=== PATIENT | male | born 1975 | race Caucasian/White ===

== ENCOUNTER 2020-04-05 18:53 | Emergency (ER) | payer MEDICAID ==
--- NOTE | 2020-04-05 19:21 | EDM.PDOC ---
ED HPI GENERAL MEDICAL PROBLEM - General Chief Complaint: Laceration Stated Complaint: GASH ABOVE EYE/FELL ON CONCRETE Time Seen by Provider: 04/05/20 19:00 Source of Information: Reports: Patient, Family History Limitations: Reports: No Limitations - History of Present Illness INITIAL COMMENTS - FREE TEXT/NARRATIVE: Patient states was walking out of the bar today after having 7 or 8 beers states his left knee gave out only when he fell hitting his right forehead on the concrete patient denies any loss of consciousness. He states he was able to get up with assistance of his he denies any signs or symptoms of any head injury at this time His tetanus is up-to-date given within the last 5 years He has no other complaints Onset: Today, Sudden Duration: Minutes: Quality: Reports: Other (No pain) Associated Symptoms: Reports: No Other Symptoms. Denies: Confusion, Chest Pain , Cough, Diaphoresis, Fever/Chills, Loss of Appetite, Nausea/Vomiting, Shortness of Breath, Weakness Treatments MECHANICAL INSULATOR: Denies: Acetaminophen, Aspirin, NSAIDS - Related Data Allergies Allergy/AdvReac Type Severity Reaction Status Date / Time Penicillins Allergy Cannot Verified 04/05/20 19:12 Remember Home Meds: Home Meds . [Unable to Verify Home Med List] 04/05/20 [History] Past Medical History Psychiatric History: Reports: Addiction, Anxiety, Depression ED ROS GENERAL - Review of Systems Review Of Systems: See Below Constitutional: Reports: No Symptoms HEENT: Reports: No Symptoms Respiratory: Reports: No Symptoms Cardiovascular: Reports: No Symptoms Endocrine: Reports: No Symptoms GI/Abdominal: Reports: No Symptoms : Reports: No Symptoms Musculoskeletal: Reports: Joint Pain, Other (Chronic left knee pain patient states it gives out 2-3 times a week.) Skin: Reports: No Symptoms, Other (There is a noted 1.5 cm x 3 mm laceration at the lateral aspect of the eyebrow there is no noted edema or abrasions no crepitus there is no tenderness to palpation around the orbit patient has no pain with Valsalva maneuver that would indicate any type of blowout fracture or orbital floor fracture pupils equal round reactive to light acombination normal EOMI no signs of entrapment) Neurological: Reports: No Symptoms. Denies: Confusion, Dizziness, Headache, Numbness, Paresthesia, Pre-Existing Deficit, Seizure, Syncope, Tingling, Tremors , Trouble Speaking, Difficulty Walking, Weakness, Gait Disturbance Psychiatric: Reports: No Symptoms Hematologic/Lymphatic: Reports: No Symptoms Immunologic: Reports: No Symptoms ED EXAM, SKIN/RASH Exam: See Below Exam Limited By: No Limitations General Appearance: Alert, WD/WN, No Apparent Distress, Other (Patient is alert and oriented x4 normal conversation logical thought process follows all commands cranial nerves II through XII are intact he has normal gait normal Romberg) Eye Exam: Bilateral Eye: EOMI, Normal Inspection Ears: Normal External Exam, Normal Canal, Hearing Grossly Normal, Normal TMs Nose: Normal Inspection, Normal Mucosa, No Blood Throat/Mouth: Normal Inspection, Normal Lips, Normal Teeth, Normal Gums, Normal Oropharynx, Normal Voice, No Airway Compromise Head: Atraumatic, Normocephalic. No: Facial Swelling, Facial Tenderness, Sinus Tenderness Neck: Normal Inspection, Supple, Non-Tender, Full Range of Motion Respiratory/Chest: No Respiratory Distress, Lungs Clear, Normal Breath Sounds, No Accessory Muscle Use Cardiovascular: Regular Rate, Rhythm GI/Abdominal: Normal Bowel Sounds, Soft, Non-Tender, No Organomegaly, No Distention Extremities: Normal Inspection, Normal Range of Motion, Non-Tender Neurological: Alert, Oriented, CN II-XII Intact, Normal Cognition, Normal Gait, Normal Reflexes, No Motor/Sensory Deficits, Other (There is a noted 1.5 cm x 3 mm laceration at the lateral aspect of the eyebrow there is no noted edema or abrasions no crepitus there is no tenderness to palpation around the orbit patient has no pain with Valsalva maneuver that would indicate any type of blowout fracture or orbital floor fracture pupils equal round reactive to light acombination normal EOMI no signs of entrapment) Psychiatric: Normal Affect, Normal Mood Skin: Warm, Dry, Intact, Normal Color, No Rash Location, Skin: Other (1.5 cm linear/jagged laceration to the lateral aspect of the eyebrow no bleeding is noted) Course - Vital Signs Text/Narrative:: PT refused to head CT and explained risk versus benefits still refuses States he is okay and knows what signs and symptoms to watch for and been in worse shape than this The laceration was cleaned with a Hibiclens sponge and Dermabond with great approximation Patient and was given head injury instructions and signs and symptoms needs to return to the emergency room and need for follow-up with wound Last Recorded V/S: Last Vital Signs Temp 36.4 C 04/05/20 18:53 Pulse 86 04/05/20 18:53 Resp 16 04/05/20 18:53 BP 123/80 04/05/20 18:53 Pulse Ox 96 04/05/20 18:53 Departure - Departure Time of Disposition: 19:45 Disposition: Home, Self-Care 01 Condition: Good Clinical Impression: Laceration of head, Contusion of head - Discharge Information *PRESCRIPTION DRUG MONITORING PROGRAM REVIEWED*: No *COPY OF PRESCRIPTION DRUG MONITORING REPORT IN PATIENT MARK: No Instructions: Contusion, [id number], Laceration Care, Adult, [id number] Referrals: Bernardino Vargas PA-C [Primary Care Provider] - Forms: ED Department Discharge Additional Instructions: Return to the emergency room if anything changes or gets worse such Any change in behavior headache vision changes nausea or vomiting bleeding from the ears or nose or anything that is not normal Keep the area clean and dry with warm soapy water Follow-up with the primary care provider in the next 24 to 48 hours Sepsis Event Note - Evaluation Sepsis Screening Result: No Definite Risk - Focused Exam Vital Signs: Vital Signs Temp Pulse Resp BP Pulse Ox 04/05/20 18:53 36.4 C 86 16 123/80 96 Date Exam was Performed: 04/05/20 Time Exam was Performed: 20:59 - Problem List & Annotations (1) Contusion of head SNOMED Code(s): 337548318 Code(s): S00.93XA - CONTUSION OF UNSPECIFIED PART OF HEAD, INITIAL ENCOUNTER Status: Acute (2) Laceration of head SNOMED Code(s): 587589765 Code(s): S01.91XA - LACERATION W/O FOREIGN BODY OF UNSP PART OF HEAD, INIT Status: Acute
== END 2020-04-05 19:39 | disposition home or self-care (01) ==
LOC: VM.ED 18:53
DX: S01.111A Laceration without foreign body of right eyelid and periocular area, initial encounter (principal); Z88.0 Allergy status to penicillin; W01.10XA Fall on same level from slipping, tripping and stumbling with subsequent striking against unspecified object, initial encounter
CPT/HCPCS: 12011; 99282-25